=== PATIENT | female | born 1940 | race Caucasian/White ===

== ENCOUNTER → 2017-09-27 | Outpatient (CLI) | payer MEDICARE, OTHER ==
--- NOTE | 2017-09-27 15:01 | DIAGNOSTIC IMAGING REPORT ---
TWO VIEW CHEST CLINICAL HISTORY: Cough. FINDINGS: PA and lateral chest radiographs are obtained. No prior studies are available for comparison at the time of dictation. The heart is top normal for projection. There is mild atherosclerotic calcification of the thoracic aorta. There are minimal patchy airspace opacities at the right lung base. Nonspecific interstitial thickening is observed. No pleural effusion is identified. There is no pneumothorax. The skeletal structures are osteopenic. The bony thorax appears intact. IMPRESSION: There are minimal airspace opacities at the right lung base, likely representing atelectasis. Correlate clinically for evidence of developing pneumonia. Electronically signed by: Bret Pedroza M.D. 09/27/2017 3:00 PM Dictated Date/Time: 09/27/2017 2:59 PM
== END | disposition home or self-care (01) ==
LOC: C.RAD1850 14:47
PROVIDERS: ATTEND Student in an Organized Health Care Education/Training Program
DX: R05 Cough (principal)